=== PATIENT | female | born 1965 | race African-American/Black ===

== ENCOUNTER 2024-09-10 18:43 | Emergency (ER) | payer MEDICAID ==
[~2024-09-10] VITALS: Ht 170.2 cm; Wt 114.0 kg
[2024-09-10 18:54] VITALS: O2SAT 97
[2024-09-10] MEDS ORDERED: AMOX1TAB16 MT (19:31)
[2024-09-10 19:50] VITALS: BP 159/86; PULSE 83; RESP 16; TEMP 36.8; O2SAT 97
== END 2024-09-10 19:50 | disposition home or self-care (01) ==
LOC: ER 18:43
DX: H66.91 Otitis media, unspecified, right ear (principal)
CPT/HCPCS: 99283